=== PATIENT | female | born 1950 | race African-American/Black ===

== ENCOUNTER 2019-01-05 14:23 | Inpatient (IN) | payer SELFPAY ==
[~2019-01-05] VITALS: Ht 162.6 cm; Wt 89.1 kg
[2019-01-05] MEDS ORDERED: ONDANSETRON HCL 4MG/2ML INJ IV STA (14:48)
[2019-01-05] MEDS ORDERED: SODIUM CHLORIDE 0.9% 1,000 ML IV ONE (14:48)
[2019-01-05 15:20] LABS: EOSINOPHILS % 0.3 % (0.0-5.0); HEMATOCRIT. 43.6 % (36.0-48.0); HEMOGLOBIN. 14.6 g/dL (12.0-16.0); INR 1.1; LYMPHOCYTES % 22.3 % (20.0-50.0); MEAN CORPUSCULAR HEMOGLOBIN 31.4 pg (28.0-32.0); MEAN CORPUSCULAR VOLUME 93.7 fL (81.0-99.0); MEAN PLATELET VOLUME 9.8 fl (7.4-10.4); MONOCYTES % 7.6 % (2.0-8.0); NEUTROPHILS % 68.8 % (40.0-76.0); PLATELET 218 x1000/uL (130-400); PROTHROMBIN TIME 10.7 sec (9.1-11.1); RED BLOOD CELL COUNT 4.65 mill/uL (4.2-5.4); RED CELL DISTRIBUTION WIDTH 13.9 % (11.6-14.6)
[2019-01-05 15:28] LABS: CHLORIDE 103 mEq/L (98-107)
[2019-01-05 15:32] LABS: ETHANOL BLOOD < 10 mg/dL
[2019-01-05 18:26] LABS: CLARITY URINE CLOUDY (CLEAR); COLOR URINE YELLOW (YELLOW); KETONES URINE 1+ (NEGATIVE); LEUKOCYTE ESTERASE URINE 3+ (NEGATIVE); NITRITE URINE NEGATIVE (NEGATIVE); OCCULT BLOOD URINE TRACE (NEGATIVE); PROTEIN URINE NEGATIVE (NEGATIVE); SPECIFIC GRAVITY URINE 1.019 (1.005-1.030); UROBILINOGEN URINE 0.2 E.U./dL (0.2-1.0)
[2019-01-05 18:38] LABS: *AMPHETAMINES SCREEN URINE NEGATIVE (NEGATIVE); *BARBITURATES SCREEN URINE NEGATIVE (NEGATIVE); *BENZODIAZEPINES SCREEN URINE NEGATIVE (NEGATIVE); *COCAINE SCREEN URINE NEGATIVE (NEGATIVE); CANNABINOID URINE SCREEN NEGATIVE (NEGATIVE); PHENCYCLIDINE URINE SCREEN NEGATIVE (NEGATIVE)
[2019-01-05 18:39] LABS: METHADONE URINE SCREEN NEGATIVE (NEGATIVE); OPIATES URINE SCREEN NEGATIVE (NEGATIVE)
[2019-01-05] MEDS ORDERED: ASPIRIN 325MG TABLET PO ONE (18:45)
[2019-01-05] MEDS ORDERED: NA PHOS,M-B/NA PHOS,DI-BA ENEMA 118ML PR PRN (20:15)
[2019-01-05] MEDS ORDERED: MAGNESIUM/ALUMINUM HYDROXIDE/SIMETHICONE 30ML UDC PO PRN (20:15)
[2019-01-05] MEDS ORDERED: ACETAMINOPHEN 325MG TABLET PO PRN (20:15)
[2019-01-05] MEDS ORDERED: IPRATROPIUM/ALBUTEROL 0.5-3(2.5)MG/3ML NEB INH PRN (20:15)
[2019-01-05] MEDS ORDERED: ACETAMINOPHEN 650MG/20.3ML UDC GT PRN (20:15)
[2019-01-05] MEDS ORDERED: ACETAMINOPHEN 650MG SUPP PR PRN (20:15)
[2019-01-05] MEDS ORDERED: DIPHENHYDRAMINE 50MG/ML VIAL IV PRN (20:15)
[2019-01-05 21:15] VITALS: BP 162/73
[2019-01-05 21:41] VITALS: BP 162/73
[2019-01-05] MEDS ORDERED: ENAL1TAB34 PO (21:59)
[2019-01-05] MEDS ORDERED: BENA40TA9 PO (21:59)
[2019-01-05] MEDS ORDERED: HYDR25TA PO (21:59)
[2019-01-05] MEDS: SODIUM CHLORIDE 0.9% INJ 3ML FLUSH IVF SCH (22:00)
[2019-01-05] MEDS: SODIUM CHLORIDE 0.45% 1,000 ML IV SCH (22:00)
[2019-01-06] VITALS: BP 156/63
[2019-01-06] MEDS ORDERED: DEXTROSE 50% WATER 50ML SYRINGE IV PRN
[2019-01-06 00:08] LABS: CREATINE KINASE MB FRACTION 3.9 ng/mL (0.5-3.6)
[2019-01-06] MEDS: IPRATROPIUM/ALBUTEROL 0.5-3(2.5)MG/3ML NEB INH SCH ×4 (03:14→21:45)
[2019-01-06 04:00] VITALS: BP 153/71
[2019-01-06] MEDS: SODIUM CHLORIDE 0.9% INJ 3ML FLUSH IVF SCH ×3 (06:26→21:33)
[2019-01-06] MEDS: BLOOD SUGAR DIAGNOSTIC STRIP TEST SCH ×4 (06:26→21:33)
[2019-01-06] MEDS: INSULIN LISPRO 100 UNITS/ML SUBCUT SCH ×4 (06:26→21:00)
[2019-01-06 06:30] LABS: HEMATOCRIT. 38.7 % (36.0-48.0); HEMOGLOBIN. 12.7 g/dL (12.0-16.0); MEAN CORPUSCULAR HEMOGLOBIN 30.9 pg (28.0-32.0); MEAN PLATELET VOLUME 9.8 fl (7.4-10.4); PLATELET 201 x1000/uL (130-400); RED BLOOD CELL COUNT 4.12 mill/uL (4.2-5.4); RED CELL DISTRIBUTION WIDTH 13.7 % (11.6-14.6)
[2019-01-06 07:01] LABS: CHLORIDE 105 mEq/L (98-107)
[2019-01-06 07:16] LABS: CREATINE KINASE 237 IU/L (26-192)
[2019-01-06 07:17] LABS: HDL CHOLESTEROL 49 mg/dL (40-59)
[2019-01-06 07:28] LABS: LDL CHOLESTEROL 134 mg/dL (5-100)
[2019-01-06 07:39] LABS: CREATINE KINASE MB FRACTION 3.2 ng/mL (0.5-3.6)
[2019-01-06 08:00] VITALS: BP 138/66
[2019-01-06 12:00] VITALS: BP 142/77
[2019-01-06 12:03] LABS: PLATELET ESTIMATE NORMAL
[2019-01-06] MEDS: ASPIRIN 325MG EC TABLET PO SCH (15:05)
[2019-01-06] MEDS: SODIUM CHLORIDE 0.45% 1,000 ML IV SCH (15:10)
[2019-01-06 16:00] VITALS: BP 128/56
[2019-01-06 20:00] VITALS: BP 144/58
[2019-01-06] MEDS ORDERED: ATORVASTATIN CALCIUM 10MG TABLET PO SCH (21:00)
[2019-01-06] MEDS: ATORVASTATIN CALCIUM 40MG TABLET PO SCH (21:33)
[2019-01-07] VITALS: BP 147/71
[2019-01-07] MEDS: SODIUM CHLORIDE 0.45% 1,000 ML IV SCH ×2 (02:59→23:53)
[2019-01-07 04:00] VITALS: BP 148/61
[2019-01-07] MEDS: INSULIN LISPRO 100 UNITS/ML SUBCUT SCH ×3 (06:19→17:15)
[2019-01-07] MEDS: BLOOD SUGAR DIAGNOSTIC STRIP TEST SCH ×3 (06:19→17:35)
[2019-01-07] MEDS: SODIUM CHLORIDE 0.9% INJ 3ML FLUSH IVF SCH ×3 (06:19→20:57)
[2019-01-07 08:00] VITALS: BP 148/64
[2019-01-07] MEDS: IPRATROPIUM/ALBUTEROL 0.5-3(2.5)MG/3ML NEB INH SCH ×4 (08:20→21:36)
[2019-01-07] MEDS: ASPIRIN 325MG EC TABLET PO SCH (08:33)
[2019-01-07 12:00] VITALS: BP 122/45
[2019-01-07 16:00] VITALS: BP 151/60
[2019-01-07 20:00] VITALS: BP 145/88
[2019-01-07] MEDS: ATORVASTATIN CALCIUM 40MG TABLET PO SCH (20:56)
[2019-01-08] VITALS: BP 159/76
[2019-01-08] MEDS: IPRATROPIUM/ALBUTEROL 0.5-3(2.5)MG/3ML NEB INH SCH ×3 (00:05→15:22)
[2019-01-08 04:00] VITALS: BP 154/66
[2019-01-08 08:00] VITALS: BP 130/55
[2019-01-08] MEDS: ASPIRIN 325MG EC TABLET PO SCH (09:01)
[2019-01-08] MEDS ORDERED: BISACODYL 5MG TABLET PO PRN (10:15)
[2019-01-08 12:00] VITALS: BP 136/58
[2019-01-08] MEDS: SODIUM CHLORIDE 0.9% INJ 3ML FLUSH IVF SCH (14:12)
[2019-01-08] MEDS ORDERED: ASA5EC PO (15:59)
[2019-01-08] MEDS ORDERED: LIP40 PO (15:59)
[2019-01-08 16:00] VITALS: BP 150/66
[2019-01-08 17:02] LABS: BASOPHILS % 0.8 % (0.0-2.0); EOSINOPHILS % 1.2 % (0.0-5.0); HEMATOCRIT. 44.4 % (36.0-48.0); HEMOGLOBIN. 14.5 g/dL (12.0-16.0); LYMPHOCYTES % 32.2 % (20.0-50.0); MEAN CORPUSCULAR HEMOGLOBIN 30.6 pg (28.0-32.0); MEAN CORPUSCULAR VOLUME 93.9 fL (81.0-99.0); MONOCYTES % 6.5 % (2.0-8.0); NEUTROPHILS % 59.3 % (40.0-76.0); PLATELET 212 x1000/uL (130-400); RED BLOOD CELL COUNT 4.73 mill/uL (4.2-5.4); RED CELL DISTRIBUTION WIDTH 13.8 % (11.6-14.6)
[2019-01-08 17:11] LABS: CHLORIDE 106 mEq/L (98-107)
[2019-01-08 18:18] VITALS: BP 150/66
[2019-01-08] MEDS ORDERED: ENOXAPARIN 40MG/0.4ML SYR SUBCUT SCH (21:00)
== END 2019-01-08 20:15 | disposition home or self-care (01) | DRG 45 ==
LOC: ER 16:09 → 5WST 18:37 → EDBEDREQTM 18:39 → EDBEDREQ 18:39 → ENRESERV 20:29
PROVIDERS: ADMIT Family Medicine; ATTEND Family Medicine
DX: I63.89 Other cerebral infarction (principal); E87.5 Hyperkalemia; E78.5 Hyperlipidemia, unspecified; I10 Essential (primary) hypertension; R29.810 Facial weakness; G81.94 Hemiplegia, unspecified affecting left nondominant side; R47.81 Slurred speech; Z79.82 Long term (current) use of aspirin
CPT/HCPCS: 36415; 70551; 71045; 80061; 80305; 80320; 82550; 82553; 82962; 83605; 84443; 84484; 92610; 93005; 93306; 93880; 94640; 96374; 96375; 97116; 97162; 97166; 97530; 97535; 99285; J2405; J7030; J7620; G0480